=== PATIENT | male | born 1975 | race Caucasian/White ===

== ENCOUNTER 2020-09-01 23:15 | Emergency (ER) | payer BC ==
--- NOTE | 2020-09-01 23:39 | EDM.PDOC ---
ED HPI GENERAL MEDICAL PROBLEM - General Chief Complaint: Behavioral/Psych Stated Complaint: MENTAL HEALTH Time Seen by Provider: 09/01/20 23:27 - History of Present Illness INITIAL COMMENTS - FREE TEXT/NARRATIVE: HISTORY AND PHYSICAL: History of present illness: This is a 44-year-old gentleman with no significant past medical history who presents to the ER today secondary to depression with suicidal ideation. Patient presents to the ED voluntarily secondary to having thoughts about wanting to harm himself. Patient reports that at 1 point he did have a plan of hanging self but he never acted upon it. Patient reports he does have a history significant for depression in the distant past that required admission to the hospital when he was 21 years old. Patient reports no history of hypertension, diabetes, liver, lung, kidney problems. Patient denies any abdominal or chest surgeries in the past. Patient reports that he drinks once a week and his last drink was approximately 48 hours ago. Patient reports that in the past he has utilized cocaine and methamphetamine but he has not utilized any drugs in the last 3-month. Patient verbalizes that he has good days and bad days and over the last couple days he has had a couple bad days secondary to thoughts about his ex-girlfriend with a new boyfriend. Patient is vague about specifics but appears to be depressed over relationship issues. Patient denies any recent fevers, shakes, chills, nausea, vomiting, diarrhea, dysuria, frequency, urgency, chest pain, shortness of breath. Review of systems: As per history of present illness and below otherwise all systems reviewed and negative. Past medical history: As per history of present illness and as reviewed below otherwise noncontributory. Surgical history: As per history of present illness and as reviewed below otherwise noncontributory. Social history: No reported history of drug or alcohol abuse. Family history: As per history of present illness and as reviewed below otherwise noncontribut ory. Physical exam: This patient was seen and evaluated during the 2019 SARS-CoV-2 novel coronavirus pandemic period. Community viral transmission is ongoing at time of this encounter and the emergency department is operating under pandemic response procedures. Constitutional: Patient is oriented to person, place, and time. Appears well- developed and well-nourished. No distress. HEENT: Moist mucous membranes Head: Normocephalic and atraumatic Eyes: Right eye exhibits no discharge. Left eye exhibits no discharge. No scleral icterus Neck: Normal range of motion. No tracheal deviation present. Cardiovascular: Normal rate and regular rhythm. Pulmonary: Effort normal, no respiratory distress. Abdominal: No distention Musculoskeletal: Normal range of motion Neurologic: Alert and oriented to person, place and time. Skin: [place], warm and dry. Psychiatric: Depressed mood and affect. Behavior is normal. Judgment and thought content normal. Nursing note and vital signs have been reviewed Diagnostics: CBC, CMP, acetaminophen, salicylate, alcohol, UDS, EKG Therapeutics: Potassium 40 mg p.o. Assessment and plan: This is a 44-year-old gentleman who presents voluntarily to the ED today secondary to depression and having thoughts of self-harm secondary to issues with his ex-girlfriend and her new boyfriend. Patient reports that he did have thoughts about hanging himself but did not act upon it. Patient presents ER today requesting assistance secondary to his depression and thoughts. Patient be medically cleared here in the ED and they will assist patient with obtaining appropriate referral for inpatient treatment of depression/suicidal ideation. Patient currently is currently calm and cooperative and is not requiring any form of medical sedation/medical or physical restraints. 1 AM: Case discussed with [facility]: No beds available for psychiatric placement 1:05 AM: Case discussed with [facility]: No beds available for psychiatric placement 1:15 AM: Case discussed with [facility]: They do have a bed available for psychiatric placement. I discussed the case with Dr. reyes who is agreed to accept patient in transfer for further psychiatric treatment of patient's depression and suicidal ideation. Definitive disposition and diagnosis as appropriate pending reevaluation and review of above. - Related Data Allergies Allergy/AdvReac Type Severity Reaction Status Date / Time No Known Allergies Allergy Verified 09/01/20 23:37 Home Meds: Home Meds lisinopriL [Lisinopril] 1 tab PO DAILY 09/01/20 [History] ED ROS GENERAL - Review of Systems Review Of Systems: See Below ED EXAM, GENERAL - Physical Exam Exam: See Below #1 Interpretation EKG Interpretation Comments: EKG: As interpreted by ER physician: Eleazar: Nonspecific ST-T wave abnormalities Normal axis No evidence of ST elevation MD Normal sinus rhythm heart rate of 78 Course - Vital Signs Last Recorded V/S: Last Vital Signs Temp 97.7 F 09/01/20 23:20 Pulse 107 H 09/02/20 00:28 Resp 18 09/02/20 00:28 BP 119/53 L 09/02/20 00:28 Pulse Ox 97 09/02/20 00:28 - Orders/Labs/Meds Labs: Laboratory Tests 09/01/20 09/01/20 09/01/20 Range/Units 23:35 23:35 23:35 WBC (4.0-11.0) K/uL RBC (4.50-5.90) M/uL Hgb (13.0-17.0) g/dL Hct (38.0-50.0) % MCV (80.0-98.0) fL MCH (27.0-32.0) pg MCHC (31.0-37.0) g/dL RDW Std Deviation (28.0-62.0) fl RDW Coeff of Keila (11.0-15.0) % Plt Count (150-400) K/uL MPV (7.40-12.00) fL Neut % (Auto) (48.0-80.0) % Lymph % (Auto) (16.0-40.0) % Cocke % (Auto) (0.0-15.0) % Eos % (Auto) (0.0-7.0) % Baso % (Auto) (0.0-1.5) % Neut # (Auto) (1.4-5.7) K/uL Lymph # (Auto) (0.6-2.4) K/uL Cocke # (Auto) (0.0-0.8) K/uL Eos # (Auto) (0.0-0.7) K/uL Baso # (Auto) (0.0-0.1) K/uL Nucleated RBC % /100WBC Nucleated RBCs # K/uL Sodium (136-148) mmol/L Potassium (3.5-5.1) mmol/L Chloride (98-107) mmol/L Carbon Dioxide (21.0-32.0) mmol/L BUN (7.0-18.0) mg/dL Creatinine (0.8-1.3) mg/dL Est Cr Clr Drug Dosing mL/min Estimated GFR (MDRD) ml/min Glucose (74-106) mg/dL Calcium (8.5-10.1) mg/dL Magnesium (1.8-2.4) mg/dL Total Bilirubin (0.2-1.0) mg/dL AST (15-37) IU/L ALT (14-63) IU/L Alkaline Phosphatase (46-116) U/L Total Protein (6.4-8.2) g/dL Albumin (3.4-5.0) g/dL Globulin (2.6-4.0) g/dL Albumin/Globulin Ratio (0.9-1.6) TSH 3rd Generation (0.36-3.74) uIU/mL Urine Color YELLOW Urine Appearance CLEAR Urine pH 5.5 (5.0-8.0) Ur Specific Sparks >= 1.030 (1.001-1.035) Urine Protein TRACE H (NEGATIVE) mg/dL Urine Glucose (UA) NEGATIVE (NEGATIVE) mg/dL Urine Ketones NEGATIVE (NEGATIVE) mg/dL Urine Occult Blood NEGATIVE (NEGATIVE) Urine Nitrite NEGATIVE (NEGATIVE) Urine Bilirubin NEGATIVE (NEGATIVE) Urine Urobilinogen 0.2 (<2.0) EU/dL Ur Leukocyte Esterase NEGATIVE (NEGATIVE) Urine RBC 0-1 (0-2/HPF) Urine WBC 0-2 (0-5/HPF) Ur Epithelial Cells OCCASIONAL (NONE-FEW) Urine Bacteria FEW (NEGATIVE) Urine Mucus MODERATE (NONE-MOD) Salicylates (0-20) mg/dL Urine Opiates Screen NEGATIVE (NEGATIVE) Ur Oxycodone Screen NEGATIVE (NEGATIVE) Urine Methadone Screen NEGATIVE (NEGATIVE) Acetaminophen ug/mL Ur Barbiturates Screen NEGATIVE (NEGATIVE) Ur Phencyclidine Scrn NEGATIVE (NEGATIVE) Ur Amphetamine Screen POSITIVE (NEGATIVE) U Methamphetamines Scrn POSITIVE (NEGATIVE) U Benzodiazepines Scrn NEGATIVE (NEGATIVE) U Cocaine Metab Screen POSITIVE (NEGATIVE) U Marijuana (THC) Screen NEGATIVE (NEGATIVE) Ethyl Alcohol mg/dL SARS-CoV-2 RNA (ROMAN) NEGATIVE (NEGATIVE) 09/01/20 09/01/20 Range/Units 23:38 23:38 WBC 12.47 H (4.0-11.0) K/uL RBC 5.61 (4.50-5.90) M/uL Hgb 18.0 H (13.0-17.0) g/dL Hct 49.0 (38.0-50.0) % MCV 87.3 (80.0-98.0) fL MCH 32.1 H (27.0-32.0) pg MCHC 36.7 (31.0-37.0) g/dL RDW Std Deviation 38.8 (28.0-62.0) fl RDW Coeff of Keila 12 (11.0-15.0) % Plt Count 217 (150-400) K/uL MPV 10.30 (7.40-12.00) fL Neut % (Auto) 73.9 (48.0-80.0) % Lymph % (Auto) 14.0 L (16.0-40.0) % Cocke % (Auto) 8.3 (0.0-15.0) % Eos % (Auto) 3.6 (0.0-7.0) % Baso % (Auto) 0.2 (0.0-1.5) % Neut # (Auto) 9.2 H (1.4-5.7) K/uL Lymph # (Auto) 1.7 (0.6-2.4) K/uL Cocke # (Auto) 1.0 H (0.0-0.8) K/uL Eos # (Auto) 0.5 (0.0-0.7) K/uL Baso # (Auto) 0.0 (0.0-0.1) K/uL Nucleated RBC % 0.0 /100WBC Nucleated RBCs # 0 K/uL Sodium 135 L (136-148) mmol/L Potassium 3.3 L (3.5-5.1) mmol/L Chloride 100 (98-107) mmol/L Carbon Dioxide 24.0 (21.0-32.0) mmol/L BUN 26 H (7.0-18.0) mg/dL Creatinine 1.6 H (0.8-1.3) mg/dL Est Cr Clr Drug Dosing 67.97 mL/min Estimated GFR (MDRD) 47.6 ml/min Glucose 114 H (74-106) mg/dL Calcium 8.8 (8.5-10.1) mg/dL Magnesium 2.2 (1.8-2.4) mg/dL Total Bilirubin 0.9 (0.2-1.0) mg/dL AST 70 H (15-37) IU/L ALT 51 (14-63) IU/L Alkaline Phosphatase 55 (46-116) U/L Total Protein 7.7 (6.4-8.2) g/dL Albumin 4.0 (3.4-5.0) g/dL Globulin 3.7 (2.6-4.0) g/dL Albumin/Globulin Ratio 1.1 (0.9-1.6) TSH 3rd Generation 2.45 (0.36-3.74) uIU/mL Urine Color Urine Appearance Urine pH (5.0-8.0) Ur Specific Sparks (1.001-1.035) Urine Protein (NEGATIVE) mg/dL Urine Glucose (UA) (NEGATIVE) mg/dL Urine Ketones (NEGATIVE) mg/dL Urine Occult Blood (NEGATIVE) Urine Nitrite (NEGATIVE) Urine Bilirubin (NEGATIVE) Urine Urobilinogen (<2.0) EU/dL Ur Leukocyte Esterase (NEGATIVE) Urine RBC (0-2/HPF) Urine WBC (0-5/HPF) Ur Epithelial Cells (NONE-FEW) Urine Bacteria (NEGATIVE) Urine Mucus (NONE-MOD) Salicylates 0.2 (0-20) mg/dL Urine Opiates Screen (NEGATIVE) Ur Oxycodone Screen (NEGATIVE) Urine Methadone Screen (NEGATIVE) Acetaminophen < 2.0 ug/mL Ur Barbiturates Screen (NEGATIVE) Ur Phencyclidine Scrn (NEGATIVE) Ur Amphetamine Screen (NEGATIVE) U Methamphetamines Scrn (NEGATIVE) U Benzodiazepines Scrn (NEGATIVE) U Cocaine Metab Screen (NEGATIVE) U Marijuana (THC) Screen (NEGATIVE) Ethyl Alcohol < 3.0 mg/dL SARS-CoV-2 RNA (ROMAN) (NEGATIVE) Departure - Departure Time of Disposition: :28 Disposition: DC/Tfer to Psych Hosp/Unit 65 Condition: Good Clinical Impression: Depressive disorder, Suicidal ideation MDD (major depressive disorder) Qualifiers: Major depression recurrence: single episode Active/Remission status: currently active Major depression episode severity: severe Psychotic features: without psychotic features Qualified Code(s): F32.2 - Major depressive disorder, single episode, severe without psychotic features - Discharge Information Referrals: Lawanda Green MD [Primary Care Provider] - Forms: ED Department Discharge Sepsis Event Note (ED) - Focused Exam Vital Signs: Vital Signs Temp Pulse Resp BP Pulse Ox 09/02/20 00:28 107 H 18 119/53 L 97 09/01/20 23:20 97.7 F 116 H 18 125/71 99
[2020-09-02 00:35] LABS: ACETAMINOPHEN < 2.0 ug/mL
[2020-09-02 00:46] LABS: SODIUM,NA 135 mmol/L (136-148)
[2020-09-02 00:47] LABS: BLOOD UREA NITROGEN,BUN 26 mg/dL (7.0-18.0); CHLORIDE,CL 100 mmol/L (98-107); GLUCOSE RANDOM 114 mg/dL (74-106); POTASSIUM,K 3.3 mmol/L (3.5-5.1)
[2020-09-02] MEDS ORDERED: Potassium Chloride 10% 20 MEQ/15 ML Soln 30 ML UD Cup PO ONE (01:28)
[2020-09-02] MEDS ORDERED: LORazepam 2 MG/ML SDV IM ONE (02:00)
== END 2020-09-02 09:35 ==
LOC: MW.ED 23:15
DX: F32.2 Major depressive disorder, single episode, severe without psychotic features (principal); Z20.822 Contact with and (suspected) exposure to COVID-19; Z79.899 Other long term (current) drug therapy
CPT/HCPCS: 36415; 80053; 80143; 80179; 80305; 80307; 81001; 83735; 84443; 85025; 87635; 93005; 96372; 99285; A9270; J2060; U0002

== ENCOUNTER 2021-05-08 13:16 | Emergency (ER) | payer SELFPAY ==
--- NOTE | 2021-05-08 15:25 | EDM.PDOC ---
ED HPI GENERAL MEDICAL PROBLEM - General Chief Complaint: Fever Stated Complaint: CHILLS SHAKES SWEAT CRAMPS Time Seen by Provider: 05/08/21 15:10 - History of Present Illness INITIAL COMMENTS - FREE TEXT/NARRATIVE: 45yo male with a history of hypertension and history of IV drug abuse last injected cocaine last night. Presenting with about 16 hours of chills generalized myalgias and rigors. Some shortness of breath and cough no sore throat no neck pain no headache no dysuria or hematuria. No midline back pain. Patient is significant fatigue as well. No abdominal pain no vomiting no diarrhea Generalized Pain Score (Numeric/FACES): 10 - Related Data Allergies Allergy/AdvReac Type Severity Reaction Status Date / Time No Known Allergies Allergy Verified 05/08/21 15:47 Home Meds: Home Meds lisinopriL [Lisinopril] 1 tab PO DAILY 09/01/20 [History] Past Medical History HEENT History: Reports: None Cardiovascular History: Reports: Hypertension Respiratory History: Reports: None Gastrointestinal History: Reports: None Genitourinary History: Reports: None Musculoskeletal History: Reports: None Neurological History: Reports: None Psychiatric History: Reports: Anxiety, Depression, Suicidal Ideation Endocrine/Metabolic History: Reports: None 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 ENT: No sore throat. Neck: No neck stiffness. Respiratory: Per HPI Cardiac: No chest pain. Gastrointestinal: No nausea, vomiting or abdominal pain. Urinary: No dysuria. Musculoskeletal: Per HPI Neurologic: No headache. ED EXAM, GENERAL - Physical Exam Exam: See Below Free Text/Narrative:: General Appearance: No acute distress, appears comfortable Skin: Track mallory to the left arm are without swelling exudate erythema or other signs of infection HEENT: Normocephalic/atraumatic, sclera anicteric, mucous membranes moist, mild posterior oropharyngeal erythema no exudate no trismus no submental or sublingual swelling Neck: Normal range of motion Chest and Lungs: Bilateral breath sounds, clear to auscultation Cardiovascular: Regular rate and rhythm, no murmur Abdomen: Soft, non-tender Back: No midline tenderness step-off or deformity Musculoskeletal: No edema or tenderness Neurologic: Awake, alert, no obvious deficits, moving all extremities Psychiatric: Appropriate, cooperative Course - Vital Signs Last Recorded V/S: Last Vital Signs Temp 97.8 F 05/08/21 15:47 Pulse 88 05/08/21 15:47 Resp 18 05/08/21 15:47 BP 110/65 05/08/21 15:47 Pulse Ox 98 05/08/21 15:47 - Orders/Labs/Meds Labs: Laboratory Tests 05/08/21 Range/Units 15:30 SARS-CoV-2 RNA (ROMAN) POSITIVE H (NEGATIVE) Departure - Departure Time of Disposition: 16:38 Disposition: Home, Self-Care 01 Condition: Good Clinical Impression: COVID-19 - Discharge Information *PRESCRIPTION DRUG MONITORING PROGRAM REVIEWED*: Not Applicable *COPY OF PRESCRIPTION DRUG MONITORING REPORT IN PATIENT STEPHANY: Not Applicable Instructions: 10 Things You Can Do to Manage Your COVID-19 Symptoms at Home - [facility] (01/22/2021) Referrals: Lawanda Green MD [Primary Care Provider] - Forms: ED Department Discharge Additional Instructions: You need to quarantine yourself at home until you are released from quarantine by the [facility] department this should happen in 10 days. If you have worsening trouble breathing please return to the ER. The following information is given to patients seen in the emergency department who are being discharged to home. This information is to outline your options for follow-up care. We provide all patients seen in our emergency department with a follow-up referral. The need for follow-up, as well as the timing and circumstances, are variable depending upon the specifics of your emergency department visit. If you don't have a primary care physician on staff, we will provide you with a referral. We always advise you to contact your personal physician following an emergency department visit to inform them of the circumstance of the visit and for follow-up with them and/or the need for any referrals to a consulting specialist. The emergency department will also refer you to a specialist when appropriate. This referral assures that you have the opportunity for follow-up care with a specialist. All of these measure are taken in an effort to provide you with optimal care, which includes your follow-up. Under all circumstances we always encourage you to contact your private physician who remains a resource for coordinating your care. When calling for follow-up care, please make the office aware that this follow-up is from your recent emergency room visit. If for any reason you are refused follow-up, please contact the [facility] Emergency Department at and asked to speak to the emergency department charge nurse. Sepsis Event Note (ED) - Focused Exam Vital Signs: Vital Signs Temp Pulse Resp BP Pulse Ox 05/08/21 15:47 97.8 F 88 18 110/65 98 - Assessment/Plan Assessment:: 45-year-old male presenting with signs and symptoms most consistent with viral infection. Patient has no severe midline back pain that would suggest epidural abscess or discitis or osteomyelitis no findings of urinary tract infection certainly Covid or flu is a consideration pneumonia is a consideration as well no findings of deep space infection of the head or neck and exam is inconsistent with strep. Vital signs are good chest x-ray and relevant swabs pending. Patient without markers on exam that would suggest bacterial endocarditis. 1635: Patient is Covid positive this explains his symptoms work of breathing remains normal vital signs remain normal return precautions discussed and understood he does not qualify for antibody infusions.
--- NOTE | 2021-05-08 15:57 | CR ---
Indication: Cough. Rigors. Technique: AP portable view of the chest. Comparison: None Findings: The heart is normal in size. The lungs are clear. No infiltrate, pleural effusion, or pneumothorax is identified. Impression: No acute cardiopulmonary process. Dictated by Beata Johnson MD @ 05/08/2021 3:56:21 PM (Electronically Signed)
== END 2021-05-08 16:47 | disposition home or self-care (01) ==
LOC: MW.ED 13:16
DX: U07.1 COVID-19 (principal); Z79.899 Other long term (current) drug therapy
CPT/HCPCS: 71045; 71045-26; 87804; 99283-25; U0002

== ENCOUNTER 2021-08-07 04:42 | Emergency (ER) | payer BC, MEDICAID, OTHER ==
[2021-08-07] MEDS ORDERED: Lidocaine 1% with EPINEPHrine 1:100,000 20 ML MDV INJECT ONE (04:45)
[2021-08-07] MEDS ORDERED: Diphtheria,Pertussis(Acell),Tetanus Vaccine 0.5 ML Syringe ONE (04:50)
[2021-08-07] MEDS ORDERED: Diphtheria,Pertussis(Acell),Tetanus Vaccine 0.5 ML Syringe IM ONE (05:08)
== END 2021-08-07 06:20 | disposition home or self-care (01) ==
LOC: MW.ED 04:42
DX: S51.812A Laceration without foreign body of left forearm, initial encounter (principal); I10 Essential (primary) hypertension; Z23 Encounter for immunization; W26.0XXA Contact with knife, initial encounter
CPT/HCPCS: 12002; 90471; 90715; 99282-25